=== PATIENT | female | born 1975 | race Caucasian/White ===

== ENCOUNTER → 2017-04-29 | Outpatient (CLI) | payer OTHER ==
[~2017-04-29] MED LIST: ALLEGRA ALLERG180 MG PO; ALLEGRA-D 12 H1 EAC1; ALLEGRA-D 24 H1 EACH PO; AMOXICILLIN 50500 MG PO; CIPROFLOXACIN500 M1 PO; FLOMAX0.4 MG PO; FLONASE 0.05%50 MCG NASAL; IBUPROFEN 600600 M1 PO; IBUPROFEN 800800 MG PO; MACROBID 100 M100 M1 PO; MULTIVITAMINS1 EAC7; NORCO 5-325 TA1 EACH PO; OMEPRAZOLE40 MG PO; ONDANSETRON HCL4 M2 PO; PERCOCET PO; PROTONIX 20 MG20 M1 PO; PROTONIX40 M1 PO; ZOFRAN ODT4 MG PO; ZOFRAN4 MG PO
[2017-04-29 08:46] LABS: CALCIUM 8.6 mg/dL (8.5-10.1); CREATININE 0.8 mg/dL (0.6-1.0); POTASSIUM 3.7 mmol/L (3.5-5.1)
== END ==
LOC: CAT 07:39
PROVIDERS: Urology
DX: K76.0 Fatty (change of) liver, not elsewhere classified (principal); N20.0 Calculus of kidney

== ENCOUNTER → 2017-08-10 | Outpatient (CLI) | payer OTHER | LOC: MRI 08-01 09:27 | DX: M54.12 Radiculopathy, cervical region (principal) ==

== ENCOUNTER → 2018-02-27 | Outpatient (CLI) | payer OTHER | LOC: ULTRA 14:09 | DX: K76.0 Fatty (change of) liver, not elsewhere classified (principal); R16.0 Hepatomegaly, not elsewhere classified ==

== ENCOUNTER → 2018-03-06 | Outpatient (CLI) | payer OTHER | LOC: NUC 06:38 | DX: R10.9 Unspecified abdominal pain (principal); R11.2 Nausea with vomiting, unspecified; R19.7 Diarrhea, unspecified ==

== ENCOUNTER 2018-07-13 10:15 | Emergency (ER) | payer OTHER ==
[~2018-07-13] VITALS: Ht 147.3 cm; Wt 81.2 kg
[2018-07-13 10:37] LABS: URINE BLOOD 3+ (Negative); URINE CLARITY TURBID; URINE COLOR BROWN; URINE GLUCOSE-RANDOM* TRACE (Negative); URINE KETONES TRACE (Negative); URINE LEUKOCYTES-REFLEX TRACE (Negative); URINE NITRITE-REFLEX POSITIVE (Negative); URINE PROTEIN (DIPSTICK) 2+ (Negative); URINE SPECIFIC GRAVITY >= 1.030 (1.005-1.035)
[2018-07-13 10:39] LABS: ICTOTEST (BILI CONFIRMATORY) Negative (Negative); URINE BILIRUBIN NEGATIVE (Negative)
[2018-07-13 10:42] LABS: AMORPHOUS URATES Many /LPF (None Seen); CASTS None Seen /LPF (None Seen); SQUAMOUS None Seen /LPF (0-3); URINE RBC >20 Many /HPF (0-2); URINE WBC-REFLEX 6-15 Few /HPF (0-5)
[2018-07-13 10:54] LABS: ABSOLUTE NEUTROPHILS 9.6 thou/uL (1.4-8.2); BASOPHILS 1.1 % (0.0-2.0); EOSINOPHILS 1.7 % (0.0-3.0); HEMATOCRIT 43.5 % (37.0-47.0); HEMOGLOBIN 15.1 gm/dL (12.0-15.0); LYMPHOCYTES 19.1 % (24.0-44.0); MCH 28.3 pg (26.0-34.0); MCHC 34.8 g/dL (28.0-37.0); MCV 81.4 fL (80.0-100.0); MONOCYTES 4.6 % (1.0-8.0); PLATELET COUNT 270 thou/uL (150-400); POLYS 73.5 % (36.0-66.0); RBC 5.34 mil/uL (4.20-5.00); RDW 14.6 % (10.5-14.5); WBC 13.1 thou/uL (4.0-11.0)
[2018-07-13 11:02] LABS: CALCIUM 9.4 mg/dL (8.5-10.1); CREATININE 0.8 mg/dL (0.6-1.0); POTASSIUM 3.8 mmol/L (3.5-5.1)
[2018-07-13] MEDS ORDERED: BACTRIM DS TAB1 EACH PO (12:39)
== END 2018-07-13 12:46 | disposition home or self-care (01) ==
LOC: ER 10:15
PROVIDERS: Student in an Organized Health Care Education/Training Program
DX: N39.0 Urinary tract infection, site not specified (principal); N20.0 Calculus of kidney; F17.210 Nicotine dependence, cigarettes, uncomplicated; K21.9 Gastro-esophageal reflux disease without esophagitis; Z87.442 Personal history of urinary calculi; Z90.89 Acquired absence of other organs

== ENCOUNTER → 2018-07-21 | Outpatient (CLI) | payer OTHER ==
[~2018-07-21] MED LIST changes: +BACTRIM DS TAB1 EACH PO
== END ==
LOC: CAT 14:51
DX: K76.0 Fatty (change of) liver, not elsewhere classified (principal); N83.201 Unspecified ovarian cyst, right side; N83.202 Unspecified ovarian cyst, left side; K21.9 Gastro-esophageal reflux disease without esophagitis; Z87.891 Personal history of nicotine dependence; Z90.710 Acquired absence of both cervix and uterus; Z68.41 Body mass index [BMI] 40.0-44.9, adult

== ENCOUNTER 2018-08-08 20:01 | Emergency (ER) | payer OTHER ==
[~2018-08-08] VITALS: Ht 127 cm; Wt 79.4 kg
[2018-08-08 22:31] LABS: ABSOLUTE NEUTROPHILS 10.9 thou/uL (1.4-8.2); BASOPHILS 1.2 % (0.0-2.0); EOSINOPHILS 2.9 % (0.0-3.0); HEMATOCRIT 41.8 % (37.0-47.0); LYMPHOCYTES 16.8 % (24.0-44.0); MCH 27.2 pg (26.0-34.0); MCHC 33.4 g/dL (28.0-37.0); MCV 81.6 fL (80.0-100.0); MONOCYTES 5.9 % (1.0-8.0); PLATELET COUNT 253 thou/uL (150-400); POLYS 73.2 % (36.0-66.0); RBC 5.12 mil/uL (4.20-5.00); RDW 15.1 % (10.5-14.5); WBC 14.8 thou/uL (4.0-11.0)
[2018-08-08] MEDS ORDERED: LISINOPRIL20 MG PO (22:33)
[2018-08-08 22:40] LABS: CALCIUM 9.2 mg/dL (8.5-10.1); CREATININE 1.2 mg/dL (0.6-1.0); POTASSIUM 3.8 mmol/L (3.5-5.1)
[2018-08-09] MEDS ORDERED: NORCO 5-325 TA1 EACH PO (01:02)
[2018-08-09] MEDS ORDERED: ZOFRAN ODT4 MG PO (01:02)
[2018-08-09] MEDS ORDERED: SENNA-DOCUSATE1 EACH PO (01:02)
== END 2018-08-09 01:22 | disposition home or self-care (01) ==
LOC: ER 20:01
PROVIDERS: Emergency Medicine
DX: N20.1 Calculus of ureter (principal); R11.2 Nausea with vomiting, unspecified; F17.210 Nicotine dependence, cigarettes, uncomplicated; K21.9 Gastro-esophageal reflux disease without esophagitis; Z87.442 Personal history of urinary calculi; Z90.89 Acquired absence of other organs

== ENCOUNTER 2018-09-07 03:21 | Emergency (ER) | payer OTHER ==
[~2018-09-07] VITALS: Ht 147.3 cm; Wt 80.3 kg
[~2018-09-07 03:21] MED LIST changes: +LISINOPRIL20 MG PO; +SENNA-DOCUSATE1 EACH PO
[2018-09-07 03:41] LABS: URINE BILIRUBIN 1+ (Negative); URINE BLOOD 3+ (Negative); URINE CLARITY CLOUDY; URINE COLOR RED; URINE GLUCOSE-RANDOM* NEGATIVE (Negative); URINE KETONES NEGATIVE (Negative); URINE LEUKOCYTES-REFLEX NEGATIVE (Negative); URINE NITRITE-REFLEX NEGATIVE (Negative); URINE PROTEIN (DIPSTICK) TRACE (Negative); URINE SPECIFIC GRAVITY >= 1.030 (1.005-1.035); URINE UROBILINOGEN 0.2 E.U./dl (0.2-1.0)
[2018-09-07 03:45] LABS: ABSOLUTE NEUTROPHILS 7.9 thou/uL (1.4-8.2); BASOPHILS 1.7 % (0.0-2.0); EOSINOPHILS 3.7 % (0.0-3.0); HEMATOCRIT 43.1 % (37.0-47.0); HEMOGLOBIN 14.4 gm/dL (12.0-15.0); LYMPHOCYTES 22.4 % (24.0-44.0); MCH 27.5 pg (26.0-34.0); MCHC 33.5 g/dL (28.0-37.0); MCV 82.3 fL (80.0-100.0); MONOCYTES 5.7 % (1.0-8.0); PLATELET COUNT 242 thou/uL (150-400); POLYS 66.5 % (36.0-66.0); RBC 5.24 mil/uL (4.20-5.00); WBC 11.9 thou/uL (4.0-11.0)
[2018-09-07 03:46] LABS: ICTOTEST (BILI CONFIRMATORY) Positive (Negative)
[2018-09-07] MEDS ORDERED: METFORMIN HCL500 MG PO (03:48)
[2018-09-07 03:54] LABS: ANION GAP 7 mmol/L (7-16); BUN 15 mg/dL (7-18); CHLORIDE 104 mmol/L (98-107); CO2 26 mmol/L (21-32); CREATININE 0.9 mg/dL (0.6-1.0); GLUCOSE 175 mg/dL (74-106); POTASSIUM 3.6 mmol/L (3.5-5.1); SODIUM 137 mmol/L (136-145)
[2018-09-07 04:00] LABS: ALBUMIN 3.5 g/dL (3.4-5.0); DIRECT BILIRUBIN < 0.1 mg/dL (<0.1-0.3); LIPASE 183 U/L (73-393); SGOT 16 U/L (15-37); SGPT 39 U/L (30-65); TOTAL BILIRUBIN 0.1 mg/dL (<0.1-1.0); TOTAL PROTEIN 6.9 g/dL (6.4-8.2)
[2018-09-07 04:03] LABS: BACTERIA-REFLEX None Seen /HPF (None Seen); CASTS None Seen /LPF (None Seen); CRYSTALS None Seen /LPF (None Seen); MUCUS 4-6 Moderate strn/LPF (None Seen); URINE RBC >20 Many /HPF (0-2); URINE WBC-REFLEX None Seen /HPF (0-5)
[2018-09-07 04:04] LABS: SQUAMOUS 0-3 Few /LPF (0-3)
[2018-09-07] MEDS ORDERED: ZOFRAN ODT4 MG PO (05:23)
[2018-09-07] MEDS ORDERED: NORCO 5-325 TA1 EACH PO (05:23)
[2018-09-07 05:39] VITALS: BP 124/71
== END 2018-09-07 05:40 | disposition home or self-care (01) ==
LOC: ER 03:21
PROVIDERS: Emergency Medicine
DX: N20.1 Calculus of ureter (principal); R11.2 Nausea with vomiting, unspecified; F17.210 Nicotine dependence, cigarettes, uncomplicated; K21.9 Gastro-esophageal reflux disease without esophagitis; Z87.442 Personal history of urinary calculi; Z90.89 Acquired absence of other organs

== ENCOUNTER → 2020-08-26 | Outpatient (CLI) | payer BC, OTHER ==
[~2020-08-26] MED LIST changes: +METFORMIN HCL500 MG PO
== END ==
LOC: LAB 13:38
PROVIDERS: ATTEND Neuromusculoskeletal Medicine & OMM
DX: Z20.828 Contact with and (suspected) exposure to other viral communicable diseases (principal)

== ENCOUNTER → 2021-07-01 | Outpatient (CLI) | payer OTHER | LOC: CAT 15:20 | PROVIDERS: ATTEND Neuromusculoskeletal Medicine & OMM | DX: Z13.6 Encounter for screening for cardiovascular disorders (principal) ==